=== PATIENT | male | born 1960 | race Caucasian/White ===

== ENCOUNTER 2018-09-13 18:57 | Emergency (ER) | payer OTHER ==
--- NOTE | 2018-09-13 18:43 | EDPHY ---
H & P Time Seen by Provider: 09/13/18 18:44 Constitutional: Initial Vital Signs Temperature (C) 36 C 09/13/18 19:00 Heart Rate 108 H 09/13/18 19:00 Respiratory Rate 20 09/13/18 19:00 Blood Pressure 135/84 H 09/13/18 19:00 O2 Sat (%) 92 09/13/18 19:00 O2 Delivery Mode Room Air Allergies/Adverse Reactions: No Known Allergies Allergy (Unverified 09/13/18 20:25) Home Medications: Medication Instructions Recorded NK [No Known Home Meds] 09/13/18 Medical Decision Making - Diagnostics Imaging: Discussed imaging studies w/ manager call Radiologist, I viewed and interpreted images myself - Diagnostics Imaging Results: Imaging Impressions Head CT 09/13/18 19:00 Impression: There is no acute intracranial abnormality identified on this unenhanced CT evaluation. If there is further clinical concern regarding the patient's symptoms, MR imaging is suggested, if not otherwise contraindicated. Findings were discussed with Renee, the medical representative for Wes Meza MD at 19:26, on 09/13/2018. Procedures: Laceration Repair Verbal consent obtained by patient. Risks discussed, including but not limited to infection, pain, retained foreign body, need for additional repair, poor cosmetic result, tendon damage, nerve damage, poor wound healing, vascular damage. Alternatives to repair discussed. Marine protocol used to establish correct patient, procedure, equipment, learning support services director, and site. Anesthesia obtained by digital nerve block. Anesthetized with 0.5% bupivacaine without epinephrine to left 5th MCP joint. Laceration location left volar middle phalanx, length 4 cm, depth 5 mm, Repair type simple. Patient was prepped and draped in usual sterile fashion. Hemostasis achieved with direct pressure. Wound explored through full range of motion and entire depth of wound probed and visualized with gloved finger. No suspicion for nerve damage, tendon damage, underlying fracture, vascular damage, foreign body, or contamination. Area was cleansed with Shur-Clens and irrigated with sterile saline as per protocol. No foreign body or material removed. Repair method 5 0 Prolene simple interrupted sutures. Twenty-three of sutures placed. Well aligned, closely approximated. wound was dressed with bacitracin Band-Aid tube gauze. Patient tolerated well with no immediate complications. Wound care: [Clean and dry x 24 hours, gently clean with soap and water, cover with topical antibiotic ointment/bandage.] Suture/Staple removal: 10 Days ([facility]) ED Course/Re-evaluation: CHIEF COMPLAINT: Alcohol intoxication. HISTORY OF PRESENT ILLNESS: The patient is a 58 y/o male arriving via EMS for alcohol intoxication and a possible head injury and pinky injury. Patient was found by bystanders who called EMS system. Per EMS the patient fell from standing and hit his head and left pinky. He did lose consciousness for 30 seconds and has a laceration on his left pinky. Patient denies co-ingestion. Patient denies suicidal or homicidal behavior. REVIEW OF SYSTEMS: A comprehensive 10 system review of systems is otherwise negative aside from elements mentioned in the history of present illness and medical decision making. PHYSICAL EXAM: General Appearance: Alert, well hydrated, appropriate, and non-toxic appearing. Head: Atraumatic without scalp tenderness or obvious injury Eyes: Pupils equal, round, reactive to light and accommodation, EOMI, no trauma , no injection. Ears: Clear bilaterally, no perforation, normal landmarks Nose: Atraumatic, no rhinorrhea, clear. Throat: There is no erythema or exudates, no lesions, normal tonsils, mucus membranes moist. Neck: Supple, 2+ carotid upstroke, nontender, no lymphadenopathy. Respiratory: No retractions, no distress, no wheezes, and no accessory muscle use. Lungs are clear to auscultation bilaterally. Cardiovascular: Regular rate and rhythm, no murmurs, rubs, or gallops. Bilateral carotid, radial, dorsalis pedis, and posterior tibial pulses intact. Good capillary refill all extremities. Gastrointestinal: Abdomen is soft, nontender, non-distended, no masses, no rebound, no guarding, no peritoneal signs. Musculoskeletal: Left 4cm pinky laceration down to the flexor tendon. Otherwise normal active ROM of all extremities, atraumatic. Neurological: Alert, appropriate, and interactive. The patient has normal DTRs and non-focal cranial nerves, motor, sensory, and cerebellar exam. Skin: No rashes, good turgor, no nodules on palpation. PAST MEDICAL HISTORY: Denies PAST SURGICAL HISTORY: Denies SOCIAL HISTORY: Employed, lives in [place], DIAGNOSTICS/PROCEDURES/CRITICAL CARE TIME: Head CT: No acute findings. DIFFERENTIAL DIAGNOSIS: The differential diagnosis for the patient's altered mental status included but was not limited to hypoglycemia, infectious process, electrolyte abnormality, head injury, neurologic process, anemia, cardiac process, and intoxicants. The differential diagnosis for the patient's head injury included but was not limited to concussion, skull fracture, intra-parenchymal contusion, subarachnoid , subdural and epidural hematoma. MEDICAL DECISION MAKING: The patient is a 58 y/o male arriving via EMS for alcohol intoxication and a possible head injury and pinky injury. The patient will need a head CT as he has positive loss of copiousness. He also has a 4cm laceration on his left pinky that is down to his flexor tendon. Head CT ordered. BRIDGETT Lewis will suture the the finger laceration. 1926: I spoke with Dr. Craft, radiologist, there are not acute findings per the head CT. I serially examined this patient since the patient's arrival here in the emergency department. The patient continues to become more and more sober with each examination. 1999: I serially questioned the patient and the patient's story given initially has not changed. The patient still denies any trauma, any head injury, and any illicit drug use. At this point, the patient is walking the department freely and is clinically sober. We're discharging the patient to the [facility] in stable condition. (Wes Meza) Departure - Departure Disposition: Home, Routine, Self-Care Clinical Impression: Alcohol intoxication Qualifiers: Complication of substance-induced condition: uncomplicated Qualified Code(s): F10.920 - Alcohol use, unspecified with intoxication, uncomplicated Head injury Qualifiers: Encounter type: initial encounter Qualified Code(s): S09.90XA - Unspecified injury of head, initial encounter Laceration of left little finger Qualifiers: Encounter type: initial encounter Damage to nail status: without damage Foreign body presence: without foreign body Qualified Code(s): S61.217A - Laceration without foreign body of left little finger without damage to nail, initial encounter Condition: Good Instructions: Laceration (ED), Head Injury (ED), Alcohol Intoxication (ED) Additional Instructions: 1. Apply ice to sore areas and take 600mg ibuprofen every 6-8 hours or 650mg Tylenol every 4-6 hours for pain for the next few days. 2. Cognitive rest while symptoms are present. Avoid screen time including TV, phones, and computers until symptoms improve. 3. Physical rest while symptoms are present. Avoid any activities that could put you at further risk for a head injury until your symptoms resolve including contact sports, bicycling, etc. This may be 2 weeks or longer. 4. Follow up with Dr. Rushing, head injury specialist, for unimproved symptoms over the next 10-14 days. It's not uncommon to experience fatigue, mood swings, and difficulty concentrating with concussions. 5. Return to the ED for severe headache, weakness or numbness on one side of your body, vision changes, or other worsening of condition. 6. Sutures out in 10 days. 7. Return to the Emergency Department for fever, redness, discharge from wound, increasing pain or other worsening of condition. Referrals: Markel Salas MD [Non Staff Provider (MD)] - As per Instructions Yarely Rushing MD [Medical Doctor] - As per Instructions Report Scribed for: Wes Meza Report Scribed by: Renee Omalley Date of Report: 09/13/18 Time of Report: 18:44
[2018-09-13 20:16] VITALS: BP 125/72
== END 2018-09-13 20:45 | disposition home or self-care (01) ==
LOC: EDUNIT#
PROC: 0HQGXZZ Repair Left Hand Skin, External Approach (ICD-10-PCS; principal; 2018-09-13)
DX: S61.217A Laceration without foreign body of left little finger without damage to nail, initial encounter (principal); S09.90XA Unspecified injury of head, initial encounter; F10.920 Alcohol use, unspecified with intoxication, uncomplicated; W19.XXXA Unspecified fall, initial encounter; Y92.9 Unspecified place or not applicable; Y93.9 Activity, unspecified; Y99.9 Unspecified external cause status